=== PATIENT | female | born 1975 | race Caucasian/White ===

== ENCOUNTER → 2017-06-25 | Outpatient (CLI) | payer BC | LOC: MC.RAD 13:57 | DX: N64.52 Nipple discharge (principal) ==

== ENCOUNTER → 2018-12-09 | Outpatient (CLI) | payer BC | LOC: MC.RAD 10:56 | DX: Z12.31 Encounter for screening mammogram for malignant neoplasm of breast (principal) ==

== ENCOUNTER → 2019-05-11 | Outpatient (CLI) | payer BC | LOC: COL.RAD 10:26 | DX: E04.9 Nontoxic goiter, unspecified (principal) ==

== ENCOUNTER → 2019-11-02 | Outpatient (CLI) | payer BC | LOC: COL.RAD 10:10 | DX: E04.1 Nontoxic single thyroid nodule (principal) ==

== ENCOUNTER → 2019-11-12 | Outpatient (CLI) | payer BC ==
[~2019-11-12] MED LIST: FIBERCON PO; ZOLOFT 25MG25 MG PO
[2019-11-12 09:20] VITALS: BP 124/88; PULSE 67
[2019-11-12 10:15] VITALS: BP 142/93; PULSE 61
== END ==
LOC: COL.RAD 09:00
DX: E04.1 Nontoxic single thyroid nodule (principal)

== ENCOUNTER → 2020-05-25 | Outpatient (CLI) | payer BC | LOC: COL.RAD 07:58 | DX: E04.1 Nontoxic single thyroid nodule (principal) ==

== ENCOUNTER → 2020-06-01 | Outpatient (CLI) | payer BC | LOC: MC.RAD 05-30 16:45 | DX: Z12.31 Encounter for screening mammogram for malignant neoplasm of breast (principal) ==

== ENCOUNTER 2020-07-11 10:46 | Day surgery (SDC) | payer BC ==
[2020-07-11] VITALS (10 sets, daily range): BP systolic 108–129; BP diastolic 65–86; PULSE 61–89; TEMP 98.1–98.9
[~2020-07-11] VITALS: Ht 162.6 cm; Wt 64.2 kg
[2020-07-11] MEDS ORDERED: CITRACAL + D CA1 TAB PO (11:10)
[2020-07-11] MEDS ORDERED: ZOLOFT 50MG50 MG PO (11:10)
--- NOTE | 2020-07-11 12:12 | NUR ---
Initial visit; Patient thanked [facility] [employer] Specialist for offering comfort and prayer prior to her surgical procedure.
--- NOTE | 2020-07-11 14:20 | NUR ---
Patient up from OR. Alert and oriented x 3. Spouse at bedside. Gauze dressing on neck is CDI. Denies further needs at this time. Post op VSS. Post op fluids infusing per orders.Will continue to monitor.
--- NOTE | 2020-07-11 18:48 | NUR ---
Patient has done well throughout the afternoon, tolerating diet without difficulties. Spouse remains at bedside. Patient requested pain meds for pain 4/10 to incision site, medications given per orders. Patient sounds horse but able to communicate. Denies further needs at this time. WIll report off to shift stacker.
[2020-07-12] VITALS: BP 117/79; PULSE 64; TEMP 98.6
[2020-07-12 04:00] VITALS: BP 96/60; PULSE 58; TEMP 98
[2020-07-12 07:46] VITALS: BP 103/54; PULSE 69; TEMP 97.9
[2020-07-12] MEDS ORDERED: CITRUCEL WITH500 MG PO (07:55)
--- NOTE | 2020-07-12 08:11 | NUR ---
Patient resting in bed. She tolerated diet. Pain managed with Motrin. Avoiding narcotics. She denies incisions pain, pain located to her shoulder & neck. Dr.Saville abreuied about change in her home med rec.
--- NOTE | 2020-07-12 10:27 | NUR ---
Follow-up visit; Patient is doing well and thanked Molecular Genetic Pathologist for looking in on her and wishing her God's blessings.
[2020-07-12 11:48] VITALS: BP 123/83; PULSE 58; TEMP 98
[2020-07-12] MEDS ORDERED: VALIUM 5MG T5 MG/TAB PO (14:06)
--- NOTE | 2020-07-12 15:00 | NUR ---
Patient ready for discharge. Patient spouse to take her home. We reviewed all discharge instructions. Patient one week follow up appt set up. We discussed incisions cares. Signs & symptoms of when to call the doctor. Patient ambulated out with all belongings.
== END 2020-07-12 15:49 | disposition home or self-care (01) ==
LOC: SDCO 10:46 → JCC 10:46 → SDCO 12:30 → JCC 14:54 → SDCO 07-12 15:49
DX: E07.89 Other specified disorders of thyroid (principal); E06.3 Autoimmune thyroiditis; Z20.828 Contact with and (suspected) exposure to other viral communicable diseases; F32.9 Major depressive disorder, single episode, unspecified; Z98.51 Tubal ligation status; Z79.899 Other long term (current) drug therapy; Z82.49 Family history of ischemic heart disease and other diseases of the circulatory system
CPT/HCPCS: OP; J2405; J2704; J3010; J7120

== ENCOUNTER → 2021-07-31 | Outpatient (CLI) | payer BC ==
[~2021-07-31] MED LIST changes: +CITRACAL + D CA1 TAB PO; +CITRUCEL WITH500 MG PO; +VALIUM 5MG T5 MG/TAB PO; +ZOLOFT 50MG50 MG PO
== END ==
LOC: MC.RAD 10:56
DX: Z12.31 Encounter for screening mammogram for malignant neoplasm of breast (principal); N63.20 Unspecified lump in the left breast, unspecified quadrant

== ENCOUNTER → 2021-08-02 | Outpatient (CLI) | payer BC | LOC: MC.RAD 07:42 | DX: N63.20 Unspecified lump in the left breast, unspecified quadrant (principal) ==

== ENCOUNTER → 2021-08-08 | Outpatient (CLI) | payer BC | LOC: MC.RAD 12:30 | DX: N63.20 Unspecified lump in the left breast, unspecified quadrant (principal) ==